=== PATIENT | female | born 1940 | race Caucasian/White ===

== ENCOUNTER → 2016-11-08 | Outpatient (CLI) | payer MEDICARE, OTHER ==
[~2016-11-08] MED LIST: ALDACTAZIDE 251 TAB PO; AMITRIPTYLINE H10 M1 PO; ASPIRIN 81M81 MG/TA2 PO; BYSTOLIC10 MG PO; COLACE 100100 MG/CAP PO; COLACE50 MG PO; ESTRATEST REGUL1 TAB PO; FLEXERIL 1010 MG/TAB PO; HYDRODIURIL50 MG PO; LIVALO1 MG PO; LIVILO PO; LOPRESSOR 550 MG/TAB PO; MASON NATURAL2000 IU PO; MASON NATURAL600 MG PO; MIRAPEX0.75 MG PO; MOTRIN 200200 MG/TAB PO; MULTI VITAMINS1 TAB PO; NORCO 325 MG-51 TAB PO; OMEGA 31000 MG PO; OYSCO 500500 M1 PO; PLAVIX 75MG TAB75 MG PO; PREDNISONE 5MG5 MG PO; PREVACID 30MG30 M1 PO; PROZAC 20MG20 MG PO; ROXICODONE 55 MG/TAB PO; SENNA8.6 MG PO; SEROQUEL 2525 MG/TAB PO; SEROQUEL PO; SYNTHROID0.075 MG/T PO; ULTRAM 50MG TAB50 MG PO; [UNRECOGNIZED DRUG - OTHER] PO
== END ==
LOC: COL.RAD 12:07
DX: I71.2 Thoracic aortic aneurysm, without rupture (principal); M47.896 Other spondylosis, lumbar region
CPT/HCPCS: Q9967

== ENCOUNTER 2017-06-13 09:20 | Outpatient (CLI) | payer MEDICARE, OTHER ==
[~2017-06-13] VITALS: Ht 167.6 cm; Wt 79.5 kg
[2017-06-13 09:38] VITALS: BP 133/67; PULSE 59; TEMP 98.1
[2017-06-13] MEDS ORDERED: OTEZLA PO (09:56)
[2017-06-13] MEDS ORDERED: ELIQUIS 5MG PO (09:56)
[2017-06-13] MEDS ORDERED: MULTAQ400 MG PO (09:56)
[2017-06-13] MEDS ORDERED: ALDACTONE 25MG25 M1 PO (09:56)
[2017-06-13] MEDS ORDERED: FISH OIL1000 MG PO (09:57)
[2017-06-13] MEDS ORDERED: [UNRECOGNIZED DRUG - OTHER] PO (09:57)
[2017-06-13] MEDS ORDERED: VITAMIN D 400400 IU PO (09:58)
[2017-06-13] MEDS ORDERED: GARLIC100 MG PO (09:58)
[2017-06-13] MEDS ORDERED: NIACIN NO FLUSH1 CAP PO (09:59)
[2017-06-13] MEDS ORDERED: [UNRECOGNIZED DRUG - OTHER] PO (10:00)
[2017-06-13 10:37] LABS: HEMOGLOBIN 12.8 g/dl (12.5-16.0); MEAN CELL VOLUME 90 fl (80.0-100.0); MEAN CORPUSCULAR HEMOGLOBIN 30 pg (27.0-31.0); MEAN CORPUSCULAR HGB CONC 33 g/dl (33.0-37.0); MEAN PLATELET VOLUME 10.4 fl (7.4-10.4); PLATELET COUNT 219 K/mm3 (130-400); RED BLOOD COUNT 4.33 M/mm3 (4.10-5.30); REDCELL DISTRIBUTION WIDTH-CV 13.5 % (11.5-14.5); WHITE BLOOD COUNT 4.8 K/mm3 (4.8-10.8)
[2017-06-13 11:53] VITALS: BP 119/58; PULSE 48; TEMP 98
== END 2017-06-13 12:21 | disposition home or self-care (01) ==
LOC: COL.CAR 09:20
PROVIDERS: Internal Medicine Interventional Cardiology
DX: I48.0 Paroxysmal atrial fibrillation (principal); R00.2 Palpitations; I27.2 Other secondary pulmonary hypertension; I71.2 Thoracic aortic aneurysm, without rupture; I10 Essential (primary) hypertension; G72.9 Myopathy, unspecified; E07.9 Disorder of thyroid, unspecified; L40.9 Psoriasis, unspecified; Z79.01 Long term (current) use of anticoagulants; M43.06 Spondylolysis, lumbar region; I08.3 Combined rheumatic disorders of mitral, aortic and tricuspid valves

== ENCOUNTER → 2017-08-25 | Outpatient (CLI) | payer MEDICARE, OTHER ==
[~2017-08-25] MED LIST changes: +ALDACTONE 25MG25 M1 PO; +ELIQUIS 5MG PO; +FISH OIL1000 MG PO; +GARLIC100 MG PO; +MULTAQ400 MG PO; +NIACIN NO FLUSH1 CAP PO; +OTEZLA PO; +VITAMIN D 400400 IU PO; +[UNRECOGNIZED DRUG - OTHER] PO; +[UNRECOGNIZED DRUG - OTHER] PO
== END ==
LOC: MC.RAD 14:39
DX: Z12.31 Encounter for screening mammogram for malignant neoplasm of breast (principal)

== ENCOUNTER → 2018-12-18 | Outpatient (CLI) | payer MEDICARE, OTHER | LOC: MC.RAD 14:45 | DX: Z12.31 Encounter for screening mammogram for malignant neoplasm of breast (principal); Z98.890 Other specified postprocedural states ==

== ENCOUNTER → 2019-01-01 | Outpatient (CLI) | payer MEDICARE, OTHER | LOC: COL.RAD 11:30 | DX: I71.4 Abdominal aortic aneurysm, without rupture (principal); I74.5 Embolism and thrombosis of iliac artery; Z90.710 Acquired absence of both cervix and uterus | CPT/HCPCS: Q9967 ==

== ENCOUNTER → 2019-01-11 | Outpatient (CLI) | payer MEDICARE, OTHER | LOC: COL.RAD 10:17 | DX: M48.07 Spinal stenosis, lumbosacral region (principal); M51.36 Other intervertebral disc degeneration, lumbar region; M43.16 Spondylolisthesis, lumbar region; M12.88 Other specific arthropathies, not elsewhere classified, other specified site | CPT/HCPCS: A9585 ==

== ENCOUNTER → 2019-05-25 | Outpatient (CLI) | payer MEDICARE, OTHER | LOC: MHCPAIN 15:06 | DX: G89.29 Other chronic pain (principal); M47.817 Spondylosis without myelopathy or radiculopathy, lumbosacral region; M54.16 Radiculopathy, lumbar region; M53.3 Sacrococcygeal disorders, not elsewhere classified; M96.1 Postlaminectomy syndrome, not elsewhere classified | CPT/HCPCS: G0463 ==

== ENCOUNTER → 2019-05-31 | Outpatient (CLI) | payer MEDICARE, OTHER | LOC: MHCPAIN 13:37 | DX: M47.817 Spondylosis without myelopathy or radiculopathy, lumbosacral region (principal); M54.16 Radiculopathy, lumbar region | CPT/HCPCS: J1100; Q9967 ==

== ENCOUNTER → 2019-06-16 | Outpatient (CLI) | payer MEDICARE, OTHER | LOC: MHCPAIN 13:30 | DX: G89.29 Other chronic pain (principal); M47.817 Spondylosis without myelopathy or radiculopathy, lumbosacral region; M54.16 Radiculopathy, lumbar region; M53.3 Sacrococcygeal disorders, not elsewhere classified; M96.1 Postlaminectomy syndrome, not elsewhere classified | CPT/HCPCS: G0463 ==

== ENCOUNTER → 2019-06-21 | Outpatient (CLI) | payer MEDICARE, OTHER | LOC: MHCPAIN 12:27 | DX: M47.817 Spondylosis without myelopathy or radiculopathy, lumbosacral region (principal); M54.16 Radiculopathy, lumbar region | CPT/HCPCS: J1100; Q9967 ==

== ENCOUNTER → 2019-06-30 | Outpatient (CLI) | payer MEDICARE, OTHER | LOC: MHCPAIN 12:41 | DX: G89.29 Other chronic pain (principal); M47.817 Spondylosis without myelopathy or radiculopathy, lumbosacral region; M54.16 Radiculopathy, lumbar region; M53.3 Sacrococcygeal disorders, not elsewhere classified | CPT/HCPCS: G0463 ==

== ENCOUNTER → 2019-07-05 | Outpatient (CLI) | payer MEDICARE, OTHER | LOC: MHCPAIN 12:49 | DX: M47.817 Spondylosis without myelopathy or radiculopathy, lumbosacral region (principal); M54.16 Radiculopathy, lumbar region | CPT/HCPCS: J1100; Q9967 ==

== ENCOUNTER → 2019-07-21 | Outpatient (CLI) | payer MEDICARE, OTHER | LOC: MHCPAIN 12:40 | DX: G89.29 Other chronic pain (principal); M47.817 Spondylosis without myelopathy or radiculopathy, lumbosacral region; M54.16 Radiculopathy, lumbar region; M53.3 Sacrococcygeal disorders, not elsewhere classified; M96.1 Postlaminectomy syndrome, not elsewhere classified | CPT/HCPCS: G0463 ==

== ENCOUNTER 2019-07-23 12:39 | Day surgery (SDC) | payer MEDICARE, OTHER ==
[~2019-07-23] VITALS: Ht 167.6 cm; Wt 81.0 kg
[2019-07-23] VITALS (11 sets, daily range): BP systolic 106–138; BP diastolic 52–85; PULSE 57–67
[2019-07-23 13:59] LABS: MEAN CELL VOLUME 89 fl (80.0-100.0); MEAN CORPUSCULAR HEMOGLOBIN 29 pg (27.0-31.0); MEAN CORPUSCULAR HGB CONC 33 g/dl (33.0-37.0); MEAN PLATELET VOLUME 11.5 fl (7.4-10.4); PLATELET COUNT 175 K/mm3 (130-400); RED BLOOD COUNT 4.09 M/mm3 (4.10-5.30); REDCELL DISTRIBUTION WIDTH-CV 13.2 % (11.5-14.5)
[2019-07-23 14:01] LABS: HEMATOCRIT 36.4 % (37.0-47.0)
[2019-07-23 14:13] LABS: CALCIUM 9.9 mg/dL (8.4-10.2); CREATININE, serum 0.97 (0.52-1.25); POTASSIUM 3.3 mmol/L (3.4-5.0); PROTHROMBIN TIME 11.6 SECONDS (9.7-12.8)
[2019-07-23 14:15] LABS: PARTIAL THROMBOPLASTIN TIME 33.1 SECONDS (26.0-37.0)
--- NOTE | 2019-07-23 15:39 | NUR ---
SEE MERGE DOCUMENTATION FOR MEDICATION ADMINISTRATION TIMES AND INTRA/POST PROCEDURE SEDATION ASSESSMENTS. POSITIVE BARBEAU TEST TO RIGHT WRIST.
--- NOTE | 2019-07-23 16:30 | NUR ---
PT back from maintenance shop laborer, bedside report from Agnes LANCE. pt is awake and alert, groin site looks good without evidence of bleeding or hematoma, cms isintact distal. wctm. pt denies questions or concerns at this time
--- NOTE | 2019-07-23 18:10 | NUR ---
Pt is tolerating bedrest well with no complaints. she is currently eating dinner with some help from her brother who is with her. groin site remains soft without bleeding or hematoma. cms intact distal.
--- NOTE | 2019-07-23 20:00 | NUR ---
Pt has been up ad elvira for the past hour, she has ambulated to bathroom and back with steady gait, and has lounged about the room with frequent rechecks of rt groin, no evidence of bleeding or hematoma has been noted. cms remains intact distal. I reviewed dc instructions regarding site care, activity restrictions and f/u. pt denied concerns or questions at time of departure. saline lock to lac was dc'd cath intact, dressing was applied. pt was escorted to exit via wheelchair, her brother driving her home.
== END 2019-07-23 20:56 | disposition home or self-care (01) ==
LOC: COL.CAR 12:39 → EDSTATUS 12:45 → COL.CAR 20:56
PROVIDERS: Internal Medicine Interventional Cardiology
DX: I25.10 Atherosclerotic heart disease of native coronary artery without angina pectoris (principal); I71.2 Thoracic aortic aneurysm, without rupture; I10 Essential (primary) hypertension; M79.605 Pain in left leg; M79.604 Pain in right leg; I48.0 Paroxysmal atrial fibrillation; Z88.1 Allergy status to other antibiotic agents; Z79.01 Long term (current) use of anticoagulants; Z95.818 Presence of other cardiac implants and grafts
CPT/HCPCS: J1644; J2250; J3010; Q9967

== ENCOUNTER 2019-08-05 09:30 | Outpatient (RCR) | payer MEDICARE, OTHER | END 2019-10-07 08:35 | disposition home or self-care (01) | LOC: WSPT 09:30 | DX: M47.27 Other spondylosis with radiculopathy, lumbosacral region (principal); M53.3 Sacrococcygeal disorders, not elsewhere classified; M96.1 Postlaminectomy syndrome, not elsewhere classified ==

== ENCOUNTER 2019-10-28 14:37 | Inpatient (IN) | payer MEDICARE, OTHER ==
[2019-10-28] VITALS (10 sets, daily range): BP systolic 87–112; BP diastolic 38–52; PULSE 69–82; TEMP 97.6–98.6
[~2019-10-28] VITALS: Ht 167.6 cm; Wt 79.4 kg
--- NOTE | 2019-10-28 17:10 | NUR ---
Patient is going to surgery. Dr Gregory spoke with patient. Patient signed consent. Pre-ops given. Home medications updated in the computer. Patient was able to void before going down for surgery. Anesthesia spoke with patient as well. No other changes at this time. Patients and brother followed patient down.
[2019-10-28] MEDS ORDERED: ASPIRIN 81M81 MG/TA2 PO (17:23)
[2019-10-28] MEDS ORDERED: HCTZ 25MG TAB25 MG PO (17:24)
[2019-10-28] MEDS ORDERED: MULTI VITAMINS1 TAB PO (17:26)
[2019-10-28] MEDS ORDERED: MASON NATURAL2000 IU PO (17:28)
[2019-10-28] MEDS ORDERED: TYLENOL 325MG325 MG PO (17:31)
[2019-10-28] MEDS ORDERED: COLACE 100100 MG/CAP PO (17:31)
--- NOTE | 2019-10-28 19:35 | NUR ---
RETURNS FROM SURGERY PER BED. IS AWAKE AND ALERT. IVF TO RIGHT AC WITHOUT REDNESS OR SWELLING. FAMILY AT BEDSIDE.
--- NOTE | 2019-10-28 23:30 | NUR ---
POST OP VITALS COMPLETE. PATIENT RESTING WELL, HAS OXYGEN ON AT 3L/NC DUE TO LOW SAO2 READINGS. IVF INFUSING TO RIGHT AC SITE WITHOUT REDNESS OR SWELLING. HAS TAKEN MINIMAL PO FLUIDS. BANDAIDS TO ABD X3 D/I. HAS BEEN UP TO VOID X1. DENIES PAIN.
--- NOTE | 2019-10-29 02:30 | NUR ---
PATIENT AWAKENED FOR PO MEDS. DENIES NEEDS OR PAIN AT THIS TIME. IVF INFUSING TO RIGHT AC WITHOUT PROBLEM.
[2019-10-29 04:15] VITALS: BP 95/47; PULSE 72; TEMP 97.8
--- NOTE | 2019-10-29 07:35 | NUR ---
Patient was resting quietly when student entered. Iv site intact. Very cheerful and delighted to conversate. No issues at this time.
[2019-10-29 07:46] VITALS: BP 104/47; PULSE 73; TEMP 97.2
[2019-10-29 07:54] LABS: HEMOGLOBIN 10.3 g/dl (12.5-16.0); MEAN CELL VOLUME 86 fl (80.0-100.0); MEAN CORPUSCULAR HEMOGLOBIN 27 pg (27.0-31.0); MEAN CORPUSCULAR HGB CONC 31 g/dl (33.0-37.0); MEAN PLATELET VOLUME 10.3 fl (7.4-10.4); PLATELET COUNT 223 K/mm3 (130-400); RED BLOOD COUNT 3.82 M/mm3 (4.10-5.30); REDCELL DISTRIBUTION WIDTH-CV 15.1 % (11.5-14.5)
[2019-10-29 08:04] LABS: CALCIUM 9.6 mg/dL (8.4-10.2); CREATININE, serum 0.93 (0.52-1.25); POTASSIUM 3.7 mmol/L (3.4-5.0)
[2019-10-29 08:35] LABS: BAND 9 % (0-10); LYMPHOCYTE 4 % (20.0-51.0); NEUTROPHILS 87 % (42.0-75.2); PLATELET ESTIMATE NORMAL (NORMAL)
--- NOTE | 2019-10-29 10:29 | NUR ---
SW met with the patient to discuss discharge plan. The patient lives outside of [place] with her , Ben ([phone]). She reports independence with ADLs and does not have any DME. The patient's PCP is Dr. Tristan Kruger and she receives her medications at [facility]. She reports no difficulties obtaining her meds. The patient does not have advanced directives in EMR, but she states that she does have them completed and that her is her DPOA-HC. The patient plans to return home with her upon discharge. No additional needs at this time.
--- NOTE | 2019-10-29 11:30 | NUR ---
PATIENT REPORTED PASSING A SMALL AMOUNT OF FLATUS FOR THE FIRST TIME. NURSING CONTINUES TO ENCOURAGE ACTIVITY. WILL MONITOR.
[2019-10-29 12:21] VITALS: BP 95/51; PULSE 76; TEMP 97.2
--- NOTE | 2019-10-29 13:22 | NUR ---
Patient was sleeping in bed when student entered to do assesssment. She got up and walked on unit 2 laps x3 times. Stated she was starting to pass more yeimy after each time she walked. Shower was given after lunch. we used a warm blanekt to warm abdomen for increase of parastalsis within intensines.
[2019-10-29 15:57] VITALS: BP 97/48; PULSE 71; TEMP 97.9
[2019-10-29 19:31] VITALS: BP 97/50; PULSE 72; TEMP 97.6
--- NOTE | 2019-10-29 21:06 | NUR ---
Patient doing well tonight. alert and oriented x4. denies pain at this time. abd laps x4 CDI with bandaids. BP soft, but this is normal for patient. patient teaching done regarding need for restarting fluids if bp gets any lower. diet advanced to full liquids for breakfast in am. INT to R FA patent and flushes without issue. took scheduled medications without issue. no further need at this time. will continue to monitor.
[2019-10-29 23:27] VITALS: BP 99/52; PULSE 68; TEMP 97.7
[2019-10-30 04:12] VITALS: BP 97/52; PULSE 62; TEMP 98
[2019-10-30 07:58] VITALS: BP 95/52; PULSE 67; TEMP 98.1
--- NOTE | 2019-10-30 10:00 | NUR ---
Took full liquids slowly. Minimal bowel sounds per auscultation. Encouraged to ambulate as tolerated. Afebrile.
[2019-10-30 12:07] VITALS: BP 100/50; PULSE 64; TEMP 97.5
[2019-10-30 15:03] VITALS: BP 121/69; PULSE 73; TEMP 98.2
--- NOTE | 2019-10-30 16:00 | NUR ---
Has ambulated several times in halls by self. No complaints.
--- NOTE | 2019-10-30 18:00 | NUR ---
States passed a little flatus. K-pad to abdomen for comfort.
[2019-10-30 19:28] VITALS: BP 116/55; PULSE 70; TEMP 98.4
--- NOTE | 2019-10-30 20:00 | NUR ---
Report received. Assumed care for assistant shift supervisor. Assessment complete. A&Ox3. VS stable. Has been up and ambulating in the halls. Abdomen is very distended-hypoactive bowel sounds. States she can feel the gas moving but has not passed any yet. Denies nausea/shortness of breath/pain. 3 Lap sites-edges well approximated-no dressing. Plan of care discussed for this shift. Denies questions/concerns. Encouraged to call for needs. Call light in reach. Will monitor.
[2019-10-30 23:58] VITALS: BP 103/55; PULSE 70; TEMP 97.9
--- NOTE | 2019-10-31 00:30 | NUR ---
Rating pain 4/10-with movement-to abdomen described as ache. Scheduled tylenol given per order. States she has started to pass some gas. Denies needs. Call light in reach. Will monitor
[2019-10-31 04:16] VITALS: BP 104/51; PULSE 72; TEMP 97.4
--- NOTE | 2019-10-31 06:08 | NUR ---
Has rested off and on this shift. Pain has been adequately controlled with scheduled tylenol and K pad. Had one episode of "slight nausea" but denied need for intervention. Ambulated in hallways several times. +flatus/+BM-small. Denies needs. Will monitor.
--- NOTE | 2019-10-31 06:24 | NUR ---
Scheduled tylenol given per dr order. Rating pain 2/10 to abdomen-intermittent cramp. Had one more loose stool. States she feels less distended and has passed gas only a few times. Denies nausea. Call light in reach. Will monitor.
--- NOTE | 2019-10-31 06:30 | NUR ---
Up to bathroom at this time-x large loose BM. States she also had a lot of flatus. Denies needs. Will monitor.
[2019-10-31 08:10] VITALS: BP 101/50; PULSE 79; TEMP 98.6
[2019-10-31] MEDS ORDERED: AMOXICILLIN 8751 TAB PO (09:00)
[2019-10-31 09:26] LABS: HEMOGLOBIN 10.2 g/dl (12.5-16.0); MEAN CELL VOLUME 87 fl (80.0-100.0); MEAN CORPUSCULAR HEMOGLOBIN 26 pg (27.0-31.0); MEAN CORPUSCULAR HGB CONC 30 g/dl (33.0-37.0); MEAN PLATELET VOLUME 9.9 fl (7.4-10.4); PLATELET COUNT 255 K/mm3 (130-400); RED BLOOD COUNT 3.86 M/mm3 (4.10-5.30); REDCELL DISTRIBUTION WIDTH-CV 15.3 % (11.5-14.5)
[2019-10-31 09:27] LABS: HEMATOCRIT 33.5 % (37.0-47.0)
[2019-10-31 09:45] LABS: CALCIUM 9.5 mg/dL (8.4-10.2); CREATININE, serum 0.9 (0.52-1.25); POTASSIUM 3.7 mmol/L (3.4-5.0)
[2019-10-31 12:40] VITALS: BP 112/54; PULSE 80; TEMP 98.5
--- NOTE | 2019-10-31 14:15 | NUR ---
Denied pain today. Abdomen less bloated with active bowel sounds. Had some loose stools. Abdominal incision sites CDI. Bruising present. Dr. Nova saw patient. Prescription given. Dismissed to home per w/c with family.
== END 2019-10-31 14:15 | disposition home or self-care (01) | DRG 345 ==
LOC: JCC 14:37
PROVIDERS: Surgery; ADMIT Surgery
PROC: 0DC84ZZ Extirpation of Matter from Small Intestine, Percutaneous Endoscopic Approach (ICD-10-PCS; principal; 2019-10-28 17:00)
DX: K63.1 Perforation of intestine (nontraumatic) (principal); K56.7 Ileus, unspecified; I48.91 Unspecified atrial fibrillation; K21.9 Gastro-esophageal reflux disease without esophagitis; E03.9 Hypothyroidism, unspecified; I10 Essential (primary) hypertension; G47.33 Obstructive sleep apnea (adult) (pediatric); M19.90 Unspecified osteoarthritis, unspecified site; T18.3XXA Foreign body in small intestine, initial encounter; X58.XXXA Exposure to other specified factors, initial encounter; Z88.1 Allergy status to other antibiotic agents
CPT/HCPCS: A4314; A9284; J1100; J1650; J2250; J2370; J2405; J2543; J2704; J2795; J3010; J7120

== ENCOUNTER → 2020-03-21 | Outpatient (CLI) | payer MEDICARE, OTHER ==
[~2020-03-21] MED LIST changes: +AMOXICILLIN 8751 TAB PO; +HCTZ 25MG TAB25 MG PO; +TYLENOL 325MG325 MG PO
== END ==
LOC: MC.RAD 14:45
DX: Z12.31 Encounter for screening mammogram for malignant neoplasm of breast (principal)

== ENCOUNTER → 2021-04-11 | Outpatient (CLI) | payer MEDICARE, OTHER | LOC: MC.RAD 14:30 | DX: Z12.31 Encounter for screening mammogram for malignant neoplasm of breast (principal); Z98.890 Other specified postprocedural states ==

== ENCOUNTER 2021-09-06 13:30 | Outpatient (RCR) | payer MEDICARE, OTHER | END 2021-09-14 | disposition home or self-care (01) | LOC: WSPT | DX: M48.062 Spinal stenosis, lumbar region with neurogenic claudication (principal); R29.898 Other symptoms and signs involving the musculoskeletal system; R26.81 Unsteadiness on feet; W19.XXXD Unspecified fall, subsequent encounter ==

== ENCOUNTER → 2021-10-23 | Outpatient (CLI) | payer MEDICARE, OTHER | LOC: MHCPAIN 14:02 | DX: M53.3 Sacrococcygeal disorders, not elsewhere classified (principal); M54.16 Radiculopathy, lumbar region; M96.1 Postlaminectomy syndrome, not elsewhere classified | CPT/HCPCS: G0463 ==

== ENCOUNTER → 2022-03-04 | Outpatient (CLI) | payer MEDICARE, OTHER | LOC: MHCPAIN 13:22 | DX: M47.817 Spondylosis without myelopathy or radiculopathy, lumbosacral region (principal); M53.3 Sacrococcygeal disorders, not elsewhere classified; M54.16 Radiculopathy, lumbar region; M96.1 Postlaminectomy syndrome, not elsewhere classified | CPT/HCPCS: G0463; J1100; Q9967 ==

== ENCOUNTER → 2022-03-27 | Outpatient (CLI) | payer MEDICARE, OTHER | LOC: MHCPAIN 12:38 | DX: M47.896 Other spondylosis, lumbar region (principal); M54.16 Radiculopathy, lumbar region; M53.3 Sacrococcygeal disorders, not elsewhere classified; M96.1 Postlaminectomy syndrome, not elsewhere classified | CPT/HCPCS: G0463 ==

== ENCOUNTER → 2023-01-07 | Outpatient (CLI) | payer MEDICARE, OTHER | LOC: MHCPAIN 14:33 | DX: M54.17 Radiculopathy, lumbosacral region (principal); M48.062 Spinal stenosis, lumbar region with neurogenic claudication; M96.1 Postlaminectomy syndrome, not elsewhere classified | CPT/HCPCS: G0463 ==